=== PATIENT | male | born 1995 | race Caucasian/White ===

== ENCOUNTER 2019-02-28 11:15 | Emergency (ER) | payer BC ==
--- NOTE | 2019-02-28 12:24 | UC ---
FLU HPI - HPI Summary HPI Summary: 23 yo male presents with flu like symptoms. He tells me that 4 days ago he developed fever, fatigue, body aches, and cough. He thought he was improving yesterday, but last night his symptoms returned. He has been taking tylenol and ibuprofen with good relief. Denies sore throat, SOB, chest pain, abdominal pain , n/v/d/c. - History of Current Complaint Stated Complaint: CHILLS/COUGH/FEVER Time Seen by Provider: 02/28/19 12:24 Hx Obtained From: Patient Onset/Duration: Sudden Onset Severity Currently: Moderate Severity Initially: Moderate Pain Intensity: 5 Pain Scale Used: 0-10 Numeric - Allergy/Home Medications Allergies/Adverse Reactions: Allergies Allergy/AdvReac Type Severity Reaction Status Date / Time No Known Allergies Allergy Verified 02/28/19 12:31 Home Medications: Home Medications Acetaminophen TAB* [Tylenol TAB*] 650 mg PO Q4H PRN 02/28/19 [History Confirmed 02/28/19] PMH/Surg Hx/FS Hx/Imm Hx - Additional Past Medical History Additional PMH: None - Surgical History Surgical History: None - Family History Known Family History: Positive: None - Social History Occupation: Employed Full-time Lives: With Family Alcohol Use: Occasionally Substance Use Type: None Smoking Status (MU): Never Smoked Tobacco Review of Systems All Other Systems Reviewed And Are Negative: No Constitutional: Positive: Fatigue, Other - Body aches Skin: Positive: Negative Eyes: Positive: Negative ENT: Positive: Negative Respiratory: Positive: Cough Cardiovascular: Positive: Negative Gastrointestinal: Positive: Negative Neurological: Positive: Negative Psychological: Positive: Negative Physical Exam - Summary Physical Exam Summary: GENERAL: NAD. WDWN. No pain distress. SKIN: No rashes, sores, lesions, or open wounds. HEENT: Head: AT/NC Eyes: EOM intact. Conjunctiva clear without inflammation or discharge. Ears: Hearing grossly normal. TMs intact, no bulging, erythema, or edema. Nose: Nasal mucosa pink and moist. NTTP maxillary and frontal sinus. Throat: Posterior oropharynx without exudates, erythema, or tonsillar enlargement. Uvula midline. NECK: Supple. Nontender. No lymphadenopathy. CHEST: Mild wheezing throughout. No accessory muscle use. Breathing comfortably and in no distress. CV: RRR. Pulses intact. Cap refill <2seconds NEURO: Alert. PSYCH: Age appropriate behavior. Triage Information Reviewed: Yes Vital Signs: Vital Signs: Temp Pulse Resp BP Pulse Ox 98.7 F 100 16 151/76 97 02/28/19 12:25 02/28/19 12:25 02/28/19 12:25 02/28/19 12:25 02/28/19 12:25 Laboratory Tests 02/28/19 12:39 Influenza B (Rapid) Positive A Vital Signs Reviewed: Yes Diagnostics - Radiology CXR Radiology Interpretation Completed By: Radiologist Summary of Radiographic Findings: IMPRESSION: No active cardiopulmonary disease is noted. Flu Course/Dx - Course Course Of Treatment: CXR as above. POC flu positive. Advised to continue rest, fluids, and supportive care. - Differential Dx/Diagnosis Provider Diagnosis: Influenza Discharge ED - Sign-Out/Discharge Documenting (check all that apply): Patient Departure All imaging exams completed and their final reports reviewed: Yes - Discharge Plan Condition: Stable Disposition: HOME Prescriptions: Albuterol HFA INHALER* [Ventolin HFA Inhaler*] 1 puff INH Q6H PRN #1 mdi PRN Reason: Sob/Wheezing Patient Education Materials: Influenza (ED) Forms: *Work Release Referrals: Juan Reeves [Primary Care Provider] - Additional Instructions: Most people with the flu recover within one to two weeks without treatment. However, serious complications of the flu can occur. Go to the ER immediately if you: -- You feel short of breath or have trouble breathing -- You have pain or pressure in your chest or stomach -- You have signs of being dehydrated, such as dizziness when standing or not passing urine -- You feel confused -- You cannot stop vomiting or you cannot drink enough fluids There are several groups of people who are at increased risk for flu complications. These include women, young children (<5 years of age and especially <2 years of age), people older than 65 years of age, and people with certain diseases such as chronic lung disease (such as asthma), heart disease, diabetes, immunosuppressing conditions (such as HIV infection or transplantation), and some other diseases. Treat symptoms Treating the symptoms of influenza can help you to feel better but will not make the flu go away faster. -- Rest until the flu is fully resolved, especially if the illness has been severe. -- Fluids Drink enough fluids so that you do not become dehydrated. One way to administrative judge if you are drinking enough is to look at the color of your urine. Normally, urine should be light yellow to nearly colorless. If you are drinking enough, you should pass urine every three to five hours. -- Acetaminophen (sample brand name: Tylenol) can relieve fever, headache, and muscle aches. Aspirin and medicines that include aspirin (eg, bismuth subsalicylate [sample brand name: Pepto-Bismol]) are not recommended for children under 18 because aspirin can lead to a serious disease called Hollie syndrome. -- Cough medicines are not usually helpful; cough usually resolves without treatment. We do not recommend cough or cold medicine for children under age 6 years. Antiviral treatment Antiviral medicines can be used to treat or prevent influenza. When used as a treatment, the medicine does not eliminate flu symptoms, although it can reduce the severity and duration of symptoms by about one day. Not every person with influenza needs an antiviral medicine, but some people do; the decision is based upon several factors. If you are severely ill and/or have risk factors for developing complications of influenza, you will need an antiviral agent. People who are only mildly ill and have no risk factors for complications usually do not need to be treated with antiviral medication. - Billing Disposition and Condition Condition: STABLE Disposition: Home
[2019-02-28 12:31] VITALS: BP 151/76
[2019-02-28 12:42] LABS: Influenza B Molecular POSITIVE (Negative)
== END 2019-02-28 13:13 | disposition home or self-care (01) ==
LOC: UCCORT 11:15
DX: J11.1 Influenza due to unidentified influenza virus with other respiratory manifestations (principal)
CPT/HCPCS: 71046; 99201; G0463